=== PATIENT | female | born 1970 | race Caucasian/White ===

== ENCOUNTER 2016-05-09 08:06 | Day surgery (SDC) | payer OTHER ==
[~2016-05-09 08:06] MED LIST: Lidocaine 2% 5 ML SDV ONE; Midazolam 1 MG/ML 2 ML SDV ONE; Ondansetron 4 MG/2 ML SDV ONE; Propofol 200 MG/20 ML SDV ONE; fentaNYL 250 MCG/5 ML SDV ONE
[2016-05-09] MEDS ORDERED: Lactated Ringers 1,000 ML IV SCH (08:15)
[2016-05-09] MEDS ORDERED: Bupivacaine 0.25% 10 ML SDV ONE (08:15)
--- NOTE | 2016-05-09 09:09 | PCM.PREANE ---
Preanesthetic Assessment - Anesthesia/Transfusion/Family Hx Anesthesia History: Prior Anesthesia Without Reaction Family History of Anesthesia Reaction: No Transfusion History: No Prior Transfusion(s) - Review of Systems General: No Symptoms Pulmonary: No Symptoms Cardiovascular: No Symptoms Gastrointestinal: No symptoms Neurological: No Symptoms Other: Reports: None - Physical Assessment NPO Status Date: 05/08/16 NPO Status Time: 22:00 O2 Sat by Pulse Oximetry: 100 Respiratory Rate: 18 Vital Signs: Last Vital Signs Temp 36.4 C 05/09/16 08:27 Pulse 84 05/09/16 08:27 Resp 18 05/09/16 08:27 BP 141/85 H 05/09/16 08:27 Pulse Ox 100 05/09/16 08:27 Height: 1.78 m Weight: 130.181 kg ASA Class: 2 Mental Status: Alert & Oriented x3 Airway Class: Mallampati = 2 Dentition: Reports: Dentures ROM/Head Extension: Full Lungs: Clear to auscultation, Normal respiratory effort Cardiovascular: Regular Rate, Regular Rhythm - Lab Values: Laboratory Last Values WBC 8.00 K/uL (4.0-11.0) 05/09/16 08:50 RBC 4.58 M/uL (4.30-5.90) 05/09/16 08:50 Hgb 11.4 g/dL (12.0-16.0) L 05/09/16 08:50 Hct 36.4 % (36.0-46.0) 05/09/16 08:50 MCV 79.5 fL (80.0-98.0) L 05/09/16 08:50 MCH 24.9 pg (27.0-32.0) L 05/09/16 08:50 MCHC 31.3 g/dL (31.0-37.0) 05/09/16 08:50 RDW Std Deviation 43.8 fl (28.0-62.0) 05/09/16 08:50 RDW Coeff of Ginny 15 % (11.0-15.0) 05/09/16 08:50 Plt Count 310 K/uL (150-400) 05/09/16 08:50 MPV 9.40 fL (7.40-12.00) 05/09/16 08:50 Nucleated RBC % 0.0 /100WBC 05/09/16 08:50 Nucleated RBCs # 0 K/uL 05/09/16 08:50 - Allergies Allergies/Adverse Reactions: Allergies Allergy/AdvReac Type Severity Reaction Status Date / Time aspirin Allergy Other Verified 12/15/14 13:20 - Anesthesia Plan Pre-Op Medication Ordered: None - Acknowledgements Anesthesia Type Planned: General Anesthesia Pt an Appropriate Candidate for the Planned Anesthesia: Yes Alternatives and Risks of Anesthesia Discussed w Pt/Guardian: Yes Pt/Guardian Understands and Agrees with Anesthesia Plan: Yes Additional Comments: No history of or sx of reflux, Had new lower dentures fitted 3 weeks ago. Lower gums and floor of mouth are still very sore. Priscilla Mcnair was found after testing because of a strong family history. Pt has never had a bleeding complication from her priscilla schroeder. 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 Other OB/BYN History: hx ETOP Musculoskeletal History: Reports: Arthritis Psychiatric History: Reports: Anxiety, Depression Endocrine/Metabolic History: Reports: Obesity/BMI 30+ Hematologic History: Reports: Anemia, Bleeding disorder Other Hematologic History: hx Von Willebrand's - Past Surgical History Head Surgeries/Procedures: Reports: None GI Surgical History: Reports: Cholecystectomy Musculoskeletal Surgical History: Reports: Other (see below) Other Musculoskeletal Surgeries/Procedures:: hx tabitha knee surgery - SUBSTANCE USE Smoking Status *Q: Light Tobacco Smoker Tobacco Use Within Last Twelve Months: Cigarettes Days Per Week of Alcohol Use: 1 Number of Drinks Per Day: 1 Total Drinks Per Week: 1 Recreational Drug Use History: No - HOME MEDS Home Medications: Home Meds Acetaminophen [Tylenol Extra Strength] 2 tab PO ASDIRECTED PRN 05/04/16 [History ] LORazepam 0.5 mg PO ASDIRECTED PRN 05/04/16 [History] - CURRENT (IN HOUSE) MEDS Current Meds: Current Medications Lactated Ringer's (Ringers, Lactated) 1,000 mls @ 125 mls/hr IV ASDIRECTED JAIRO Last Admin: 05/09/16 08:29 Dose: 125 mls/hr Discontinued Medications Bupivacaine HCl (Sensorcaine-Mpf 0.25%) Confirm Administered Dose 20 ml .ROUTE .STK-MED ONE Stop: 05/09/16 08:16 Fentanyl (Sublimaze) Confirm Administered Dose 250 mcg .ROUTE .STK-MED ONE Stop: 05/09/16 07:08 Lidocaine (Xylocaine-Mpf 2%) Confirm Administered Dose 5 ml .ROUTE .STK-MED ONE Stop: 05/09/16 07:07 Midazolam HCl (Versed 1 Mg/Ml) Confirm Administered Dose 2 mg .ROUTE .STK-MED ONE Stop: 05/09/16 07:08 Ondansetron HCl (Zofran) Confirm Administered Dose 4 mg .ROUTE .STK-MED ONE Stop: 05/09/16 07:07 Propofol (Diprivan 20 Ml) Confirm Administered Dose 200 mg .ROUTE .STK-MED ONE Stop: 05/09/16 07:07 Preanesthetic Assessment - ANESTHESIA/TRANSFUSION/FAMILY HX Anesthesia/Transfusion History: No Prior Transfusion(s), Prior Anesthesia Family History of Anesthesia Reaction: No Other Intubation History Comment: no known problems - PHYSICAL ASSESSMENT O2 Sat by Pulse Oximetry: 100 RR: 18 Vital Signs: Last Vital Signs Temp 36.4 C 05/09/16 08:27 Pulse 84 05/09/16 08:27 Resp 18 05/09/16 08:27 BP 141/85 H 05/09/16 08:27 Pulse Ox 100 05/09/16 08:27 Height: 1.78 m Weight: 130.181 kg NPO Status Date: 05/08/16 NPO Status Time: 22:00 - LAB Values: Laboratory Last Values WBC 8.00 K/uL (4.0-11.0) 05/09/16 08:50 RBC 4.58 M/uL (4.30-5.90) 05/09/16 08:50 Hgb 11.4 g/dL (12.0-16.0) L 05/09/16 08:50 Hct 36.4 % (36.0-46.0) 05/09/16 08:50 MCV 79.5 fL (80.0-98.0) L 05/09/16 08:50 MCH 24.9 pg (27.0-32.0) L 05/09/16 08:50 MCHC 31.3 g/dL (31.0-37.0) 05/09/16 08:50 RDW Std Deviation 43.8 fl (28.0-62.0) 05/09/16 08:50 RDW Coeff of Ginny 15 % (11.0-15.0) 05/09/16 08:50 Plt Count 310 K/uL (150-400) 05/09/16 08:50 MPV 9.40 fL (7.40-12.00) 05/09/16 08:50 Nucleated RBC % 0.0 /100WBC 05/09/16 08:50 Nucleated RBCs # 0 K/uL 05/09/16 08:50 - ALLERGIES Allergies/Adverse Reactions: Allergies Allergy/AdvReac Type Severity Reaction Status Date / Time aspirin Allergy Other Verified 12/15/14 13:20
[2016-05-09] MEDS: fentaNYL 100 MCG/2 ML SDV IVPUSH PRN ×2 (12:28→12:39)
--- NOTE | 2016-05-09 12:38 | PCM.OPNOTE ---
- General Post-Op/Procedure Note Date of Surgery/Procedure: 05/09/16 Operative Procedure(s): 1) Operative hysteroscopy with removal of an embedded IUD. 2) Dilation and Curettage Findings: Anterverted uterus 8 weeks size, sounded to 7cm. No intracavitary lesions: fibroids or polyps. Both os visualized. IUD stem and string visualized, the arms were not visualized, they embedded into the anterior uterine wall towards the left side. No injuries visualized post procedure. Pre Op Diagnosis: Embedded IUD Post-Op Diagnosis: Same Anesthesia Technique: General LMA Primary Surgeon: Anyi Joyce Pathology: IUD, Endometrial curetting and Endocervical curetting Fluid Replacement, Intraop: 1,000 EBL in mLs: 5 Complications: None Condition: Good
--- NOTE | 2016-05-09 12:51 | PCM48HPAN ---
Post Anesthesia Note - EVALUATION WITHIN 48HRS OF ANESTHETIC Vital Signs in Normal Range: Yes Patient Participated in Evaluation: Yes Respiratory Function Stable: Yes Airway Patent: Yes Cardiovascular Function Stable: Yes Hydration Status Stable: Yes Pain Control Satisfactory: Yes Nausea and Vomiting Control Satisfactory: Yes Mental Status Recovered: Yes
--- NOTE | 2016-05-09 12:51 | PCM.POSTAN ---
POST ANESTHESIA ASSESSMENT - MENTAL STATUS Mental Status: alert, oriented - RESPIRATORY Respiratory Status: respiratory rate WNL, airway patent - CARDIOVASCULAR CV Status: pulse rate WNL, blood pressure stable - GASTROINTESTINAL GI Status: no symptoms - POST OP HYDRATION Hydration Status: adequate & stable
[2016-05-09] MEDS ORDERED: Acetaminophen 325 MG Tab PO ONE (13:18)
[2016-05-09 13:22] VITALS: BP 116/72
--- NOTE | 2016-05-10 03:37 | OR ---
SURGEON: Anyi Joyce MD DATE OF PROCEDURE: 05/09/2016 PREOPERATIVE DIAGNOSIS: Embedded intrauterine device. POSTOPERATIVE DIAGNOSIS: Embedded intrauterine device. OPERATIVE PROCEDURE: 1. Operative hysteroscopy with removal of embedded IUD. 2. Dilatation and curettage. ANESTHESIA: General LMA. ESTIMATED BLOOD LOSS: Less than 15 mL. IV FLUIDS: 1000 mL of crystalloid. COMPLICATIONS: None. DISPOSITION: Stable to recovery room. PATHOLOGY: 1. IUD. 2. Endometrial and endocervical curetting. FINDINGS: Anteverted uterus, 8-week size, sounded to 7 cm. No adnexal mass is palpable. No intracavitary lesions seen on hysteroscopy. Both fallopian tubes ostia were visualized. IUD stem and string visualized within the uterine cavity, the arms of the IUD were not visualized, they were found to be embedded into the anterior uterine wall towards the left side. BRIEF HISTORY: The patient is a 46-year-old lady who was evaluated in the office following a referral for the possible embedded IUD by her PCP. The patient reports that she has had the IUD for over 15 years, she is unsure of the type. It was placed mainly for contraception. During the course of her encounter with the primary physician, they were unable to remove the IUD and an x-ray was performed which reported that the IUD seemed to have perforated the anterior uterine wall. When I evaluated her in the office, string of the IUD was visualized at the cervical os, but with a slight tug on the string, the IUD would not bulge. Pelvic ultrasound was showed that the arms of the IUD deeply embedded into the anterior uterine wall with possible perforation of the wall. We were able to visualize the bladder which was normal. There were no other pelvic abnormalities noted. The patient was then consented for hysteroscopic removal with possible laparoscopy and other indicated procedures depending on intraoperative findings. Risks and benefits of both surgeries were reviewed extensively with the patient and appropriate consent was obtained. DESCRIPTION OF PROCEDURE: The patient was taken to the operating room, where induction of general anesthesia was performed and found to be adequate. After appropriate level of anesthesia, she was placed in dorsal lithotomy position, prepped and draped in normal sterile fashion for both vaginal and laparoscopic surgery. The bladder was emptied. Examination under anesthesia revealed an anteverted uterus with no adnexal masses palpable. Endocervical curetting was performed and the sample retrieved with a Cytobrush. The cervical os was then serially dilated up to Hegar #6 and then using a MyoSure 6.5 mm operative hysteroscope, was introduced into the uterine cavity under direct visualization using normal saline as distention media. Upon entering uterine cavity, the stem of the IUD with the attached string was visualized and both fallopian tubes ostia were also identified. Tracing the stem of the IUD upwards , I was unable to visualize the arms. These were noted to be embedded into the anterior uterine wall towards the left side. A hysteroscopic grasper was then advanced into the cavity and grabbing onto the string, I pulled on it, the string dislodged and I removed that from the cavity. I reinserted the grasper and grabbed the IUD stem closer the region where it was embedded. Pulling on it, the IUD seemed to move a little bit, but despite multiple attempts with the hysteroscopic grasper, I was unable to retrieve/dislodge the IUD from the point where it was embedded in to the uterine wall. Thereafter, I tried a couple other techniques and instruments. I tried with an Endo grasper, grabbing the IUD stem and pulling a couple of times and this too was not successful. I then tried an Endo snare. The snare was passed into the cavity and the snare was then passed around end of the stem, tightened, with gentle tugging and pulling backwards, the IUD dislodged completely with both arms intact. I removed the hysteroscope and took out the IUD confirming that it was intact. It looked like a copper IUD, a picture was taken and it was sent off to pathology for analysis. The hysteroscope was reinserted into the uterine cavity. The uterine cavity was examined and no injury/perforation was noted. The area at which the IUD had been embedded was noted to have a small tiny defect on the endometrium, but other than that, no other injury was found with no bleeding from the site. The hysteroscope was withdrawn and I performed a gentle curettage retrieving minimal amount of tissue. I reinserted the hysteroscope for one last look and confirming that there were no injuries, the procedure was terminated. The fluid deficit for the surgery was about a 1630 as recorded by MyoSure fluid management device. The Allis clamp was removed from the anterior cervical lip. The area was found to be hemostatic. The patient tolerated the procedure well. Sponge, instrument, and needle counts were correct at the end of the procedure. The patient was taken to the recovery room in stable condition. JOSESITO ALCANTARA /[id number] MTDD
== END 2016-05-09 13:30 | disposition home or self-care (01) ==
LOC: MW.SDS 08:06
PROVIDERS: ATTEND Obstetrics & Gynecology
DX: N71.1 Chronic inflammatory disease of uterus (principal); T83.39XA Other mechanical complication of intrauterine contraceptive device, initial encounter; Z88.8 Allergy status to other drugs, medicaments and biological substances; Z79.899 Other long term (current) drug therapy; Z90.49 Acquired absence of other specified parts of digestive tract; F17.210 Nicotine dependence, cigarettes, uncomplicated
CPT/HCPCS: 36415; 58562; 84703; 85027; 88300; 88305; J2250; J2405; J3010; J7120; 00952; J2704

== ENCOUNTER → 2016-06-22 | Outpatient (CLI) | payer OTHER ==
--- NOTE | 2016-06-22 15:43 | CR ---
EXAMINATION: Bilateral knees HISTORY: Pain COMPARISON: None TECHNIQUE: 4 views bilaterally FINDINGS: There is severe joint space narrowing within the lateral compartment of the right knee and moderately within the medial compartment of the left knee. Advanced joint space narrowing is noted along the lateral facet of the patellofemoral compartment of the left knee. Prominent osteophytes ar e noted. Bilateral ACL repair changes present. No fracture or acute osseous abnormality. No soft tis cindy swelling or joint effusion. IMPRESSION: Advanced osteoarthritic changes of the knees bilaterally.
== END ==
LOC: MW.CHORTHO 07:59
PROVIDERS: ATTEND Physician Assistant
DX: M25.561 Pain in right knee (principal); M25.562 Pain in left knee
CPT/HCPCS: 735642650; 73564-50

== ENCOUNTER 2016-09-18 18:09 | Emergency (ER) | payer OTHER ==
[2016-09-18] MEDS ORDERED: Sodium Chloride 0.9% 1,000 ML IV ONE (18:59)
[2016-09-18] MEDS ORDERED: Ketorolac 30 MG/ML SDV IVPUSH ONE (18:59)
[2016-09-18] MEDS ORDERED: fentaNYL 100 MCG/2 ML SDV IVPUSH ONE (19:06)
--- NOTE | 2016-09-18 19:06 | EDM.PDOC ---
ED HPI GENERAL MEDICAL PROBLEM - General Chief Complaint: Lower Extremity Injury/Pain Stated Complaint: PT HURT RT KNEE Time Seen by Provider: 09/18/16 19:03 Source of Information: Reports: Patient History Limitations: Reports: No Limitations - History of Present Illness INITIAL COMMENTS - FREE TEXT/NARRATIVE: History of present illness: [46-year-old female comes in complaining of bilateral knee pain right greater than left. States that she has had bilateral knee replacement recently. Indicates she's been able to tolerate the pain well but unfortunately in the last 24 hours she's gotten to where she cannot tolerate weightbearing due to pain on the right leg.] Review of systems: As per history of present illness and below otherwise all systems reviewed and negative. Past medical history: As per history of present illness and as reviewed below otherwise noncontributory. Surgical history: As per history of present illness and as reviewed below otherwise noncontributory. Social history: No reported history of drug or alcohol abuse. Family history: As per history of present illness and as reviewed below otherwise noncontributory. Physical exam: HEENT: Atraumatic, normocephalic, pupils reactive, negative for conjunctival pallor or scleral icterus, mucous membranes moist, throat clear, neck supple, nontender, trachea midline. Lungs: Clear to auscultation, breath sounds equal bilaterally, chest nontender. Heart: S1S2, regular, negative for clicks, rubs, or JVD. Abdomen: Soft, nondistended, nontender. Negative for masses or hepatosplenomegaly. Negative for costovertebral tenderness. Pelvis: Stable nontender. Genitourinary: Deferred. Rectal: Deferred. Extremities: Bilateral knees with edema and erythema at incision line consistent with new bilateral knee replacement, negative for cords or calf pain. Neurovascular unremarkable. Neuro: Awake, alert, oriented. Cranial nerves II through XII unremarkable. Cerebellum unremarkable. Motor and sensory unremarkable throughout. Exam nonfocal. Global assessment is benign save the subjective complaint as noted in history of present illness of pain in the bilateral knees right worse than left and patient's fear of a DVT Diagnostics: CBC, CMP, d-dimer, ultrasound/venous Doppler Therapeutics: [IV fluid, Toradol, Zofran, ] Impression: [Knee pain] Plan: [Follow-up with surgeon/primary care provider Definitive disposition and diagnosis as appropriate pending reevaluation and review of above. Right Knee Pain Score (Numeric/FACES): 10 Bilateral Knee Pain Score (Numeric/FACES): 3 - Related Data Allergies Allergy/AdvReac Type Severity Reaction Status Date / Time No Known Allergies Allergy Verified 09/18/16 19:11 Home Meds: Home Meds Acetaminophen/HYDROcodone [[place] 325-10 MG] 10 - 325 mg PO Q2HR 09/18/16 [ History] Aspirin 325 mg PO BID 09/18/16 [History] Celecoxib [CeleBREX] 0 mg PO BID 09/18/16 [History] Polyethylene Glycol 3350 [MiraLAX] 17 gm PO BEDTIME 09/18/16 [History] oxyCODONE 5 mg PO Q2H 09/18/16 [History] Past Medical History - Past Health History Medical/Surgical History: Denies Medical/Surgical History HEENT History: Reports: Other (See Below) Other HEENT History: top and bottom denture, wears glasses Other Cardiovascular History: Von Willebrand disease, never formally diagnosed Gastrointestinal History: Reports: None Other Gastrointestinal History: fissures Genitourinary History: Reports: None 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: , 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 Other OB/BYN History: hx ETOP Musculoskeletal History: Reports: Arthritis Psychiatric History: Reports: Anxiety, Depression Endocrine/Metabolic History: Reports: Obesity/BMI 30+ Hematologic History: Reports: Anemia, Bleeding Disorder Other Hematologic History: hx Von Willebrand's - Infectious Disease History Infectious Disease History: Reports: Chicken Pox - Past Surgical History Head Surgeries/Procedures: Reports: None GI Surgical History: Reports: Cholecystectomy Musculoskeletal Surgical History: Reports: Knee Replacement Other Musculoskeletal Surgeries/Procedures:: double knee replacement Social & Family History - Family History Family Medical History: Noncontributory - Tobacco Use Smoking Status *Q: Current Every Day Smoker Years of Tobacco use: 10 Packs/Tins Daily: 0.5 Month Tobacco Last Used: smokes 5 to 6 cigarettes per day - Caffeine Use Caffeine Use: Reports: None - Alcohol Use Days Per Week of Alcohol Use: 1 Number of Drinks Per Day: 1 Total Drinks Per Week: 1 - Recreational Drug Use Recreational Drug Use: No Drug Use in Last 12 Months: No Review of Systems - Review of Systems Review Of Systems: See Below (The history of present illness) ED EXAM, GENERAL - Physical Exam Exam: See Below (History of present illness) Course - Vital Signs Last Recorded V/S: Last Vital Signs Temp 37.1 C 09/18/16 20:27 Pulse 93 09/18/16 20:27 Resp 18 09/18/16 20:27 BP 112/65 09/18/16 20:27 Pulse Ox 99 09/18/16 20:27 - Orders/Labs/Meds Orders: Active Orders 24 hr Category Date Time Status Venous Doppler Lwr Ext Lt [US] Stat Exams 09/18/16 20:05 Ordered Venous Doppler Lwr Ext Rt [US] Stat Exams 09/18/16 20:05 Ordered Labs: Laboratory Tests 09/18/16 09/18/16 09/18/16 Range/Units 19:20 19:20 19:20 WBC 12.60 H (4.0-11.0) K/uL RBC 3.37 L (4.30-5.90) M/uL Hgb 8.5 L (12.0-16.0) g/dL Hct 27.2 L (36.0-46.0) % MCV 80.7 (80.0-98.0) fL MCH 25.2 L (27.0-32.0) pg MCHC 31.3 (31.0-37.0) g/dL RDW Std Deviation 50.0 (28.0-62.0) fl RDW Coeff of Ginny 17 H (11.0-15.0) % Plt Count 450 H (150-400) K/uL MPV 8.90 (7.40-12.00) fL Add Manual Diff YES Neutrophils % (Manual) 70 (48.0-80.0) % Band Neutrophils % 6 % Lymphocytes % (Manual) 18 (16.0-40.0) % Monocytes % (Manual) 2 (0.0-15.0) % Eosinophils % (Manual) 2 (0.0-7.0) % Basophils % (Manual) 2 H (0.0-1.5) % Nucleated RBC % 0.0 /100WBC Absolute Seg Neuts 8.8 Band Neutrophils # 0.8 Lymphocytes # (Manual) 2.3 Monocytes # (Manual) 0.3 Eosinophils # (Manual) 0.3 Basophils # (Manual) 0 Nucleated RBCs # 0 K/uL D-Dimer, Quantitative 5.91 H (0.0-0.52) mg/LFEU Sodium 138 (136-146) mmol/L Potassium 4.2 (3.5-5.1) mmol/L Chloride 103 (98-110) mmol/L Carbon Dioxide 25 (21-31) mmol/L BUN 10 (6.0-23.0) mg/dL Creatinine 0.7 (0.6-1.5) mg/dL Est Cr Clr Drug Dosing 108.59 mL/min Estimated GFR (MDRD) > 60.0 ml/min Glucose 108 (60-110) mg/dL Calcium 9.0 (8.8-10.8) mg/dL Total Bilirubin 0.5 (0.1-1.5) mg/dL AST 12 (5-40) IU/L ALT 12 (8-54) IU/L Alkaline Phosphatase 109 (40-150) Total Protein 6.8 (6.0-8.0) g/dL Albumin 3.4 L (3.5-5.0) g/dL Globulin 3.4 (2.0-3.5) g/dL Albumin/Globulin Ratio 1.0 L (1.3-2.8) Amylase 33 (10-90) U/L Lipase 9 (7-80) U/L Meds: Medications Discontinued Medications Generic Name Dose Route Start Last Admin Trade Name Freq PRN Reason Stop Dose Admin Fentanyl 50 mcg 09/18/16 19:06 09/18/16 19:34 Sublimaze IVPUSH 09/18/16 19:07 50 mcg ONETIME ONE Administration Sodium Chloride 1,000 mls @ 999 mls/hr 09/18/16 18:59 09/18/16 19:31 Normal Saline IV 09/18/16 19:59 999 mls/hr STAT ONE Administration Ketorolac Tromethamine 30 mg 09/18/16 18:59 09/18/16 19:31 Toradol IVPUSH 09/18/16 19:00 30 mg ONETIME ONE Administration Departure - Departure Time of Disposition: 21:25 Disposition: Home, Self-Care 01 Condition: Good Clinical Impression: Knee pain - Discharge Information Forms: ED Department Discharge Additional Instructions: The following information is given to patients seen in the emergency department who are being discharged to home. This information is to outline your options for follow-up care. We provide all patients seen in our emergency department with a follow-up referral. The need for follow-up, as well as the timing and circumstances, are variable depending upon the specifics of your emergency department visit. If you don't have a primary care physician on staff, we will provide you with a referral. We always advise you to contact your personal physician following an emergency department visit to inform them of the circumstance of the visit and for follow-up with them and/or the need for any referrals to a consulting specialist. The emergency department will also refer you to a specialist when appropriate. This referral assures that you have the opportunity for follow-up care with a specialist. All of these measure are taken in an effort to provide you with optimal care, which includes your follow-up. Under all circumstances we always encourage you to contact your private physician who remains a resource for coordinating your care. When calling for follow-up care, please make the office aware that this follow-up is from your recent emergency room visit. If for any reason you are refused follow-up, please contact the [facility] Emergency Department at and asked to speak to the emergency department charge nurse. Follow-up with your surgeon as discussed Return to PCP in 1-2 days Use elevation and ice and gentle stretching with your legs as directed in her physical therapy Return to ED as needed as discussed - My Orders Last 24 Hours: My Active Orders 09/18/16 20:05 Venous Doppler Lwr Ext Lt [US] Stat Venous Doppler Lwr Ext Rt [US] Stat - Assessment/Plan Last 24 Hours: My Active Orders 09/18/16 20:05 Venous Doppler Lwr Ext Lt [US] Stat Venous Doppler Lwr Ext Rt [US] Stat
[2016-09-18 19:47] LABS: CHLORIDE,CL 103 mmol/L (98-110); SODIUM,NA 138 mmol/L (136-146)
[2016-09-18 21:43] VITALS: BP 130/75
--- NOTE | 2016-09-19 08:43 | US ---
EXAM DATE: 09/18/16 PATIENT'S AGE: 46 Patient: JOSIANE MARY Facility: [place], [place] Site . Site : 1970 Study: US Extremity Right [id number]/7/2017 9:11:04 PM Ordering Physician: Doctor Dodge Final Report: INDICATION: leg pain post surgery 09/07/2016 tabitha knee replacem TECHNIQUE: Ultrasound venous duplex lower right extremity. Compression venous exam was performed using headley-scale, color Doppler, and spectral Doppler imaging. COMPARISON: None FINDINGS: Sonographic imaging demonstrates the right common femoral, deep femoral, superficial femoral, popliteal, posterior tibial and greater saphenous and the contralateral left common femoral veins to be fully compressible with normal color Doppler blood flow. Nonspecific subcutaneous edema. IMPRESSION: No evidence of deep venous thrombosis within the right lower extremity. Dictated by Jarred Rodriguez MD @ 09/18/2016 9:17:11 PM Dictated by: Jarred Rodriguez MD @ 09/18/2016 21:17:32 (Electronic Signature) Report Signed by Proxy. [facility]ENTER[facility]igi
--- NOTE | 2016-09-19 08:43 | US ---
EXAM DATE: 09/18/16 PATIENT'S AGE: 46 Patient: JOSIANE MARY Facility: [place], [place] Site . Site : 1970 Study: US Extremity Left [id number]/7/2017 9:12:18 PM Ordering Physician: Doctor Dodge Final Report: INDICATION: leg pain post tabitha knee replacemnt TECHNIQUE: Ultrasound venous duplex lower left extremity. Compression venous exam was performed using headley-scale, color Doppler, and spectral Doppler analysis. COMPARISON: None FINDINGS: Sonographic imaging demonstrates the left common femoral, deep femoral, superficial femoral, popliteal, posterior tibial and greater saphenous and the contralateral right common femoral veins to be fully compressible with normal color Doppler blood flow. IMPRESSION: No evidence of deep venous thrombosis within the left lower extremity. Dictated by Jarred Rodriguez MD @ 09/18/2016 9:18:19 PM Dictated by: Jarred Rodriguez MD @ 09/18/2016 21:22:20 (Electronic Signature) Report Signed by Proxy. [facility]
== END 2016-09-18 21:42 | disposition home or self-care (01) ==
LOC: MW.ED 18:09
DX: M25.561 Pain in right knee (principal); M25.562 Pain in left knee; F17.210 Nicotine dependence, cigarettes, uncomplicated; Z90.49 Acquired absence of other specified parts of digestive tract; Z79.82 Long term (current) use of aspirin; Z96.653 Presence of artificial knee joint, bilateral; E66.9 Obesity, unspecified; Z86.2 Personal history of diseases of the blood and blood-forming organs and certain disorders involving the immune mechanism
CPT/HCPCS: 36415; 80053; 82150; 83690; 85025; 85379; 93971; 96361; 96374; 96375; 99284; J1885; J3010; J7040

== ENCOUNTER 2017-06-18 22:30 | Emergency (ER) | payer OTHER ==
[2017-06-19 04:09] VITALS: BP 121/92
== END 2017-06-18 22:50 | disposition left against medical advice (07) ==
LOC: MW.ED 22:30
DX: Z53.21 Procedure and treatment not carried out due to patient leaving prior to being seen by health care provider (principal)
CPT/HCPCS: 99282

== ENCOUNTER 2019-09-18 18:15 | Emergency (ER) | payer OTHER ==
[2019-09-18] MEDS ORDERED: Ondansetron 4 MG/2 ML SDV IVPUSH ONE (20:13)
[2019-09-18] MEDS ORDERED: Morphine 4 MG/ML Syringe IVPUSH ONE ×2 (20:13→20:59)
[2019-09-18] MEDS ORDERED: Sodium Chloride 0.9% 1,000 ML IV ONE (20:13)
--- NOTE | 2019-09-18 20:18 | EDM.PDOC ---
ED HPI GENERAL MEDICAL PROBLEM - General Chief Complaint: Abdominal Pain Stated Complaint: RIGHT SIDE PAIN Time Seen by Provider: 09/18/19 18:59 Source of Information: Reports: Patient History Limitations: Reports: No Limitations - History of Present Illness INITIAL COMMENTS - FREE TEXT/NARRATIVE: 49F presents for RLQ abdominal pain since last night worsening associated with nausea w/o emesis and lack of appetite. No fevers, no dysuria/hematuria. H/o cholecystectomy. Still has uterus and appendix. Onset: Other (last night) Location: Reports: Abdomen Quality: Reports: Sharp right side Pain Score (Numeric/FACES): 10 - Related Data Allergies Allergy/AdvReac Type Severity Reaction Status Date / Time No Known Allergies Allergy Verified 09/18/19 20:01 Home Meds: Home Meds . 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 Other ELECTRICAL CAD TECHNICIAN History: hx ETOP Musculoskeletal History: Reports: Arthritis Psychiatric History: Reports: Anxiety, Depression Endocrine/Metabolic History: Reports: Obesity/BMI 30+ Hematologic History: Reports: Anemia, Bleeding Disorder Other Hematologic History: hx Von Willebrand's - Infectious Disease History Infectious Disease History: Reports: Chicken Pox - Past Surgical History Head Surgeries/Procedures: Reports: None GI Surgical History: Reports: Cholecystectomy Musculoskeletal Surgical History: Reports: Knee Replacement Other Musculoskeletal Surgeries/Procedures:: double knee replacement Social & Family History - Family History Family Medical History: Noncontributory - Caffeine Use Caffeine Use: Reports: None - Recreational Drug Use Recreational Drug Type: Reports: Marijuana/Hashish ED ROS GENERAL - Review of Systems Review Of Systems: Comprehensive ROS is negative, except as noted in HPI. ED EXAM, GI/ABD - Physical Exam Exam: See Below Exam Limited By: No Limitations General Appearance: Alert, WD/WN, No Apparent Distress Head: Atraumatic Respiratory/Chest: No Respiratory Distress, Lungs Clear, Normal Breath Sounds, No Accessory Muscle Use Cardiovascular: Normal Peripheral Pulses, Regular Rate, Rhythm GI/Abdominal Exam: Soft, No Distention, Tender (RLQ w/o guarding or rebound) Back Exam: No: CVA Tenderness (L), CVA Tenderness (R) Extremities: Normal Inspection Neurological: Alert, Oriented Skin Exam: Warm, Dry Course - Vital Signs Last Recorded V/S: Last Vital Signs Temp 96.3 F L 09/18/19 22:28 Pulse 94 09/18/19 22:28 Resp 17 09/18/19 22:28 BP 148/71 H 09/18/19 22:28 Pulse Ox 95 09/18/19 22:28 - Orders/Labs/Meds Orders: Active Orders 24 hr Category Date Time Status Transvaginal Non OB [US] Stat Exams 09/18/19 21:51 Taken Labs: Laboratory Tests 09/18/19 09/18/19 09/18/19 Range/Units 18:45 18:45 20:10 WBC 15.21 H (4.0-11.0) K/uL RBC 5.51 (4.30-5.90) M/uL Hgb 14.2 (12.0-16.0) g/dL Hct 44.4 (36.0-46.0) % MCV 80.6 (80.0-98.0) fL MCH 25.8 L (27.0-32.0) pg MCHC 32.0 (31.0-37.0) g/dL RDW Std Deviation 46.1 (28.0-62.0) fl RDW Coeff of Ginny 16 H (11.0-15.0) % Plt Count 392 (150-400) K/uL MPV 9.50 (7.40-12.00) fL Neut % (Auto) 64.0 (48.0-80.0) % Lymph % (Auto) 28.3 (16.0-40.0) % Vermilion % (Auto) 5.8 (0.0-15.0) % Eos % (Auto) 1.6 (0.0-7.0) % Baso % (Auto) 0.3 (0.0-1.5) % Neut # (Auto) 9.7 H (1.4-5.7) K/uL Lymph # (Auto) 4.3 H (0.6-2.4) K/uL Vermilion # (Auto) 0.9 H (0.0-0.8) K/uL Eos # (Auto) 0.3 (0.0-0.7) K/uL Baso # (Auto) 0.1 (0.0-0.1) K/uL Nucleated RBC % 0.0 /100WBC Nucleated RBCs # 0 K/uL Sodium (136-145) mmol/L Potassium (3.5-5.1) mmol/L Chloride (98-107) mmol/L Carbon Dioxide (21.0-32.0) mmol/L BUN (7.0-18.0) mg/dL Creatinine (0.6-1.0) mg/dL Est Cr Clr Drug Dosing mL/min Estimated GFR (MDRD) ml/min Glucose (74-106) mg/dL Calcium (8.5-10.1) mg/dL Total Bilirubin (0.2-1.0) mg/dL AST (15-37) IU/L ALT (14-63) IU/L Alkaline Phosphatase (46-116) U/L Total Protein (6.4-8.2) g/dL Albumin (3.4-5.0) g/dL Globulin (2.6-4.0) g/dL Albumin/Globulin Ratio (0.9-1.6) Lipase (73-393) U/L Urine Color YELLOW Urine Appearance CLEAR Urine pH 7.0 (5.0-8.0) Ur Specific Quincy 1.020 (1.001-1.035) Urine Protein NEGATIVE (NEGATIVE) mg/dL Urine Glucose (UA) NEGATIVE (NEGATIVE) mg/dL Urine Ketones NEGATIVE (NEGATIVE) mg/dL Urine Occult Blood NEGATIVE (NEGATIVE) Urine Nitrite NEGATIVE (NEGATIVE) Urine Bilirubin NEGATIVE (NEGATIVE) Urine Urobilinogen 0.2 (<2.0) EU/dL Ur Leukocyte Esterase NEGATIVE (NEGATIVE) Urine HCG, Qual NEGATIVE (NEGATIVE) 09/18/19 Range/Units 20:10 WBC (4.0-11.0) K/uL RBC (4.30-5.90) M/uL Hgb (12.0-16.0) g/dL Hct (36.0-46.0) % MCV (80.0-98.0) fL MCH (27.0-32.0) pg MCHC (31.0-37.0) g/dL RDW Std Deviation (28.0-62.0) fl RDW Coeff of Ginny (11.0-15.0) % Plt Count (150-400) K/uL MPV (7.40-12.00) fL Neut % (Auto) (48.0-80.0) % Lymph % (Auto) (16.0-40.0) % Vermilion % (Auto) (0.0-15.0) % Eos % (Auto) (0.0-7.0) % Baso % (Auto) (0.0-1.5) % Neut # (Auto) (1.4-5.7) K/uL Lymph # (Auto) (0.6-2.4) K/uL Vermilion # (Auto) (0.0-0.8) K/uL Eos # (Auto) (0.0-0.7) K/uL Baso # (Auto) (0.0-0.1) K/uL Nucleated RBC % /100WBC Nucleated RBCs # K/uL Sodium 133 L (136-145) mmol/L Potassium 4.1 (3.5-5.1) mmol/L Chloride 100 (98-107) mmol/L Carbon Dioxide 24.7 (21.0-32.0) mmol/L BUN 8 (7.0-18.0) mg/dL Creatinine 0.6 (0.6-1.0) mg/dL Est Cr Clr Drug Dosing 130.89 mL/min Estimated GFR (MDRD) > 60.0 ml/min Glucose 116 H (74-106) mg/dL Calcium 8.9 (8.5-10.1) mg/dL Total Bilirubin 0.2 (0.2-1.0) mg/dL AST 26 (15-37) IU/L ALT 48 (14-63) IU/L Alkaline Phosphatase 139 H (46-116) U/L Total Protein 7.7 (6.4-8.2) g/dL Albumin 3.6 (3.4-5.0) g/dL Globulin 4.1 H (2.6-4.0) g/dL Albumin/Globulin Ratio 0.9 (0.9-1.6) Lipase 73 (73-393) U/L Urine Color Urine Appearance Urine pH (5.0-8.0) Ur Specific Quincy (1.001-1.035) Urine Protein (NEGATIVE) mg/dL Urine Glucose (UA) (NEGATIVE) mg/dL Urine Ketones (NEGATIVE) mg/dL Urine Occult Blood (NEGATIVE) Urine Nitrite (NEGATIVE) Urine Bilirubin (NEGATIVE) Urine Urobilinogen (<2.0) EU/dL Ur Leukocyte Esterase (NEGATIVE) Urine HCG, Qual (NEGATIVE) Meds: Medications Discontinued Medications Generic Name Dose Route Start Last Admin Trade Name Frepedrito PRN Reason Stop Dose Admin Sodium Chloride 1,000 mls @ 999 mls/hr 09/18/19 20:13 09/18/19 20:28 Normal Saline IV 09/18/19 21:13 999 mls/hr .Bolus ONE Administration Iopamidol 100 ml 09/18/19 21:47 09/18/19 21:51 Isovue-370 (76%) IVPUSH 09/18/19 21:48 100 ml ONETIME STA Administration Morphine Sulfate 4 mg 09/18/19 20:13 09/18/19 20:28 Morphine IVPUSH 09/18/19 20:14 4 mg ONETIME ONE Administration Morphine Sulfate 4 mg 09/18/19 20:59 09/18/19 22:22 Morphine IVPUSH 09/18/19 21:00 4 mg ONETIME ONE Administration Ondansetron HCl 4 mg 09/18/19 20:13 09/18/19 20:28 Zofran IVPUSH 09/18/19 20:14 4 mg ONETIME ONE Administration - Re-Assessments/Exams Free Text/Narrative Re-Assessment/Exam: 09/18/19 20:18 Will get labs, UA, treat symptomatically. Will get CT to r/o appy vs other intraabdominal pathology. Free Text/Narrative Re-Assessment/Exam: 09/18/19 20:57 Pain improved but still present. Leukocytosis to 15. Will give additional morphine and f/u CT Departure - Departure Time of Disposition: 23:48 Disposition: Home, Self-Care 01 Condition: Good Clinical Impression: Ovarian cyst Qualifiers: Laterality: right Qualified Code(s): N83.201 - Unspecified ovarian cyst, right side - Discharge Information *PRESCRIPTION DRUG MONITORING PROGRAM REVIEWED*: No *COPY OF PRESCRIPTION DRUG MONITORING REPORT IN PATIENT MARIA C: No Instructions: Ovarian Cyst, [id number] Referrals: Carol Avendaño, [employer] [Primary Care Provider] - OB, OB [Other] (My [facility] [address] [place] [id number] My [facility] [address] [place] [id number] ) Forms: ED Department Discharge Additional Instructions: The following information is given to patients seen in the emergency department who are being discharged to home. This information is to outline your options for follow-up care. We provide all patients seen in our emergency department with a follow-up referral. The need for follow-up, as well as the timing and circumstances, are variable depending upon the specifics of your emergency department visit. If you don't have a primary care physician on staff, we will provide you with a referral. We always advise you to contact your personal physician following an emergency department visit to inform them of the circumstance of the visit and for follow-up with them and/or the need for any referrals to a consulting specialist. The emergency department will also refer you to a specialist when appropriate. This referral assures that you have the opportunity for follow-up care with a specialist. All of these measure are taken in an effort to provide you with optimal care, which includes your follow-up. Under all circumstances we always encourage you to contact your private physician who remains a resource for coordinating your care. When calling for follow-up care, please make the office aware that this follow-up is from your recent emergency room visit. If for any reason you are refused follow-up, please contact the [facility] Emergency Department at and asked to speak to the emergency department charge nurse. Sepsis Event Note (ED) - Evaluation Sepsis Screening Result: No Definite Risk - Focused Exam Vital Signs: Vital Signs Temp Pulse Resp BP Pulse Ox 09/18/19 22:28 96.3 F L 94 17 148/71 H 95 09/18/19 19:58 96.7 F L 89 20 157/88 H 97 - My Orders Last 24 Hours: My Active Orders 09/18/19 21:51 Transvaginal Non OB [US] Stat - Assessment/Plan Last 24 Hours: My Active Orders 09/18/19 21:51 Transvaginal Non OB [US] Stat
[2019-09-18 20:43] LABS: BLOOD UREA NITROGEN,BUN 8 mg/dL (7.0-18.0); CARBON DIOXIDE,CO2 24.7 mmol/L (21.0-32.0); CHLORIDE,CL 100 mmol/L (98-107); LIPASE 73 U/L (73-393); POTASSIUM,K 4.1 mmol/L (3.5-5.1); SODIUM,NA 133 mmol/L (136-145)
[2019-09-18 21:22] LABS: GLUCOSE RANDOM 116 mg/dL (74-106)
[2019-09-18] MEDS ORDERED: Iopamidol 755 Mg/ML 100 ML Bottle IVPUSH STA (21:47)
--- NOTE | 2019-09-18 21:50 | CT ---
CT abdomen and pelvis Technique: Multiple axial sections were obtained from above the dome of the diaphragm inferiorly through the pubic symphysis. Intravenous contrast was utilized. No oral contrast has been given. Comparison: Prior CT abdomen and pelvis exam of 03/05/12. Findings: Visualized lung bases showed nothing acute. Fatty infiltration is seen within the liver. No focal abnormality is appreciated. Spleen appears within normal limits. Adrenal glands show no nodule. Kidneys show symmetric contrast enhancement without hydronephrosis or mass. Small cyst is noted within the upper left kidney measuring 1.1 cm. Pancreas appears within normal limits. Surgical clips are seen from prior cholecystectomy. Aorta shows no aneurysm. No retroperitoneal adenopathy or mesenteric abnormalities are seen. Cystic lesion is noted within the right posterior pelvis compatible with a cyst measuring 5.6 cm. This is most likely ovarian in etiology. No additional pelvic abnormality is appreciated. Appendix is seen which appears normal in size. Bone window settings were reviewed which show slight degenerative change scattered throughout the spine. No acute osseous finding is appreciated. Impression: 1. 5.6 cm cyst within the posterior right pelvis most likely representing an ovarian cyst. 2. Small 1.1 cm cyst within the upper left kidney. 3. Fatty infiltration within the liver. 4. Nothing acute is appreciated. Diagnostic code #3 This report was dictated in MDT
[2019-09-19 00:12] VITALS: BP 147/90; PULSE 78
--- NOTE | 2019-09-19 00:34 | US ---
INDICATION: Abdominal pain. Evaluate for ovarian torsion. PELVIC ULTRASOUND Technique: Multiple transvaginal sonographic images of the pelvis were performed. Findings: The uterus is normal in size and contour, measuring 8.1 x 4.8 x 5.3 cm. The endometrium measures 7 mm in thickness and appears homogeneous. There are multiple uterine fibroids, the largest measuring 2.5 x 1.7 x 2.3 centimeters, 2.5 x 1.5 x 2.2 centimeters, and 2.4 x 1.5 x 2.7 centimeters. The right ovary contains a simple cyst which measures 5.5 x 3.8 x 5.3 centimeters. Additionally, both ovaries contain several follicles. Color and spectral Doppler blood flow is noted in both ovaries. No solid adnexal masses are evident. No significant free pelvic fluid is identified. IMPRESSION: 1. Multiple uterine fibroids, as noted above. 2. Right ovarian 5.5 x 3.8 x 5.3 centimeter simple cyst. Follow-up pelvic ultrasound in 12 months is recommended to evaluate stability. 3. No evidence of ovarian torsion. WALTER SCHUSTER MD [employer] Dictated by Matthias Schuster MD @ 09/19/2019 12:31:18 AM Dictated by: Matthias Schuster MD @ 09/19/2019 00:32:36 (Electronically Signed)
== END 2019-09-19 00:13 | disposition home or self-care (01) ==
LOC: MW.ED 18:15
DX: N83.201 Unspecified ovarian cyst, right side (principal); E66.9 Obesity, unspecified; Z68.41 Body mass index [BMI] 40.0-44.9, adult
CPT/HCPCS: 36415; 74177; 76830; 80053; 81003; 81025; 83690; 85025; 96374; 96375; 96376; 99284; J2270; J2405; J7030; Q9967

== ENCOUNTER 2019-11-25 20:32 | Emergency (ER) | payer OTHER ==
[2019-11-25] MEDS ORDERED: Sodium Chloride 0.9% 10 ML Syringe FLUSH PRN (21:24)
[2019-11-25] MEDS ORDERED: Ketorolac 15 MG/ML SDV IVPUSH ONE (21:24)
[2019-11-25] MEDS ORDERED: Sodium Chloride 0.9% 1,000 ML IV ONE (21:24)
[2019-11-25] MEDS ORDERED: Ondansetron 4 MG/2 ML SDV IVPUSH ONE (21:24)
[2019-11-25] MEDS ORDERED: Sodium Chloride 0.9% 2.5 ML Syringe FLUSH PRN (21:24)
[2019-11-25] MEDS ORDERED: HYDROmorphone 1 MG/ML Syringe IVPUSH ONE ×2 (21:24→23:06)
[2019-11-25 22:12] LABS: BLOOD UREA NITROGEN,BUN 9 mg/dL (7.0-18.0); CARBON DIOXIDE,CO2 25.5 mmol/L (21.0-32.0); CHLORIDE,CL 103 mmol/L (98-107); GLUCOSE RANDOM 146 mg/dL (74-106); LIPASE 62 U/L (73-393); POTASSIUM,K 3.9 mmol/L (3.5-5.1); SODIUM,NA 139 mmol/L (136-145)
--- NOTE | 2019-11-25 22:45 | CT ---
INDICATION: Right lower quadrant abdomen pain. History of ovarian cyst. TECHNIQUE: CT abdomen and pelvis without contrast. COMPARISON: September 18, 2019. FINDINGS: Lower chest: Unremarkable. Liver: Diffuse fatty infiltration. Otherwise unremarkable. Gallbladder and bile ducts: Status post cholecystectomy. No biliary dilatation. Pancreas: Unremarkable. No mass or inflammation. Spleen: Normal in size. No masses. Adrenal glands: Normal in size. No nodules. Kidneys: Normal in size. No masses, stones, or hydronephrosis. GI tract: Unremarkable. Normal in caliber. No sign of mass or inflammation. Normal appendix. Vasculature: Unremarkable. Lymph nodes: No lymphadenopathy. Abdominal wall/Omentum/Peritoneum: Unremarkable. No sign of mass or infiltration. No free air or significant free fluid. Pelvis: A 5 cm simple appearing cyst in the right ovary is unchanged. No sign of cystic rupture. No other Bones: Lesions. Uterus and urinary bladder are unremarkable. IMPRESSION: No acute findings and no significant changes from the prior exam. Stable simple appearing 5 cm right ovarian cyst without evidence of rupture. Appendix and GI tract are normal. Please note that all CT scans at this facility use dose modulation, iterative reconstruction, and/or weight-based dosing when appropriate to reduce radiation dose to as low as reasonably achievable. Dictated by Andrea Salmeron MD @ Nov 25 2019 10:34PM Signed by Dr. Andrea Salmeron @ Nov 25 2019 10:44PM
--- NOTE | 2019-11-25 23:42 | US ---
INDICATION: Right-sided pelvic pain. TECHNIQUE: Ultrasound pelvis transvaginal for better assessment or to better visualize the endometrium. Real-time sonographic images with spectral and color Doppler imaging of the ovaries were obtained. COMPARISON: September 18, 2019. FINDINGS: Uterus: 8 x 5 x 3 cm. Normal echotexture of the myometrium. No distinct fibroids visualized on today`s exam. Endometrium: Transvaginal imaging was performed to better evaluate the endometrium. Endometrial thickness measures 7 mm. No sign of endometrial mass or fluid. Right ovary measures 2 x 1 x 1 cm and left ovary measures 3 x 3 x 3 cm. Again demonstrated is a simple appearing right adnexal cyst measuring 6 x 5 x 4 cm, this has slightly increased in size. Multiple relatively small cysts or follicles are present in the left ovary. Color Doppler blood flow could not be demonstrated in the right ovary. Cul-de-sac: No significant free fluid. IMPRESSION: 1. No convincing evidence for ovarian torsion. Although color Doppler blood flow could not be demonstrated in the right ovary, the ovary is not enlarged and there is no free fluid which are signs typically seen with torsion. 2. Slight interval increase in size of a prominent right paraovarian cyst without evidence of rupture. 3. No other acute or significant findings. Dictated by Andrea Salmeron MD @ Nov 25 2019 11:32PM Signed by Dr. Andrea Salmeron @ Nov 25 2019 11:40PM
--- NOTE | 2019-11-26 00:28 | EDM.PDOC ---
ED HPI GENERAL MEDICAL PROBLEM - General Chief Complaint: Abdominal Pain Stated Complaint: abdominal pain Time Seen by Provider: 11/25/19 21:16 - History of Present Illness INITIAL COMMENTS - FREE TEXT/NARRATIVE: HISTORY AND PHYSICAL: History of present illness: This is a 49-year-old female with no significant past medical history for hypertension, diabetes, liver, lung, kidney problems who presents the ER today complaining of severe right pelvic pain. Patient reports that she was diagnosed with an ovarian cyst several months ago and this feels very similar to the pain that she had when she was diagnosed with an ovarian cyst. Patient denies any recent fevers, shakes, chills, nausea, vomiting, diarrhea. Patient reports her last bowel movement was earlier today. Patient denies any melena or bright red blood per rectum. Patient reports her last p.o. intake was 2 hours prior to arrival and was mashed potatoes and corn. Patient denies any dysuria frequency urgency. Patient denies any cough cold or runny nose. Patient denies any vaginal discharge. Patient denies any dysuria frequency urgency. Patient denies any history of hypertension, diabetes, liver, lung, kidney problems. Patient reports she is status post cholecystectomy. Patient reports she smokes cigarettes but denies any alcohol or drugs. Patient reports she does have a history of von Willebrand factor. Patient's last menstrual period was greater than 1 year ago. Patient has no known drug allergies. Review of systems: As per history of present illness and below otherwise all systems reviewed and negative. Past medical history: As per history of present illness and as reviewed below otherwise noncontributory. Surgical history: As per history of present illness and as reviewed below otherwise noncontributory. Social history: No reported history of drug or alcohol abuse. Family history: As per history of present illness and as reviewed below otherwise noncontributory. Physical exam: Constitutional: Patient is oriented to person, place, and time. Appears well- developed and well-nourished. No distress. HEENT: Moist mucous membranes Head: Normocephalic and atraumatic Eyes: Right eye exhibits no discharge. Left eye exhibits no discharge. No scleral icterus Neck: Normal range of motion. No tracheal deviation present. Cardiovascular: Normal rate and regular rhythm. Pulmonary: Effort normal, no respiratory distress. Abd: Soft, nondistended, no rebound/guarding, no psoas or obturator signs, no tenderness at Mcberney's point, no Cross's sign. Pt does not present with an exam that would be consistent with an acute surgical abdomen at this time, tenderness to palpation right suprapubic region. Musculoskeletal: Normal range of motion Neurologic: Alert and oriented to person, place and time. Skin: [place], warm and dry. Psychiatric: Normal mood and affect. Behavior is normal. Judgment and thought content normal. Nursing note and vital signs have been reviewed Diagnostics: CT scan of the abdomen pelvis reveals no acute pathology. Ultrasound of the pelvis reveals 1. No convincing evidence for ovarian torsion. Although color Doppler blood flow could not be demonstrated in the right ovary, the ovary is not enlarged and there is no free fluid which are signs typically seen with torsion. 2. Slight interval increase in size of prominent right paraovarian cyst without evidence of rupture. Therapeutics: Dilaudid 0.5 mg IV, Toradol 15 mg IV, Dilaudid 1 mg IV, Zofran 4 mg IV, NSS x1 L Assessment and plan: This is a 49-year-old female who presents ER today complaining of right pelvic abdominal discomfort. Patient reports pain that she is experiencing today is similar to the cyst that she was diagnosed with several months ago. Patient's ultrasound today revealed a 6 x 5 x 4 cm right adnexal cyst which appears to be slightly enlarged from her prior ultrasound. I have discussed this case with Dr. pepper secondary to the ultrasound finding of the lack of Doppler flow to the right ovary. also felt that it was highly unlikely that the patient was having ovarian torsion if the ovary was not enlarged and there was no free fluid. He did offer to admit the patient for observation if the patient was having persistent abdominal discomfort, or if she felt comfortable to go home that he would be happy to see her in the morning in his office. I have reevaluated the patient after my discussion with . I have offered admission for her for observation and reevaluation by her DISPATCHER REFINERY service. At this point, that she reports that the pain is almost completely gone and she would prefer to go home and follow-up with in the morning in his office. Patient will be discharged home with a prescription for ibuprofen as well as Ultram to assist her with her discomfort with instructions to call Dr. pepper office to be seen tomorrow by him. 12:30 AM: I once again offered admission for the patient and she once again reiterated that she feels much improved and the pain is almost completely gone does not wish to be admitted to the hospital. Reassessment at the time of disposition demonstrates that the patient is in no acute distress. The patient has remained stable throughout the entire ED visit and is without objective evidence for acute process requiring urgent intervention or hospitalization. The patient is stable for discharge, counseling is provided as documented above, discussed symptomatic treatment and specific conditions for return. I have spoken with the patient/caregiver and discussed todays findings, in addition to providing specific details for the plan of care. Questions are answered and there is agreement with the plan. Definitive disposition and diagnosis as appropriate pending reevaluation and review of above. Treatments THERMAL SPRAY OPERATOR: Reports: Acetaminophen Right Lower Abdominal Pain Score (Numeric/FACES): 8 - Related Data Allergies Allergy/AdvReac Type Severity Reaction Status Date / Time No Known Allergies Allergy Verified 09/18/19 20:01 Home Meds: Home Meds oxyCODONE HCl/Acetaminophen [Percocet 5-325 mg Tablet] 1 each PO Q6H 3 Days #12 tablet 09/18/19 [Rx] Ibuprofen 600 mg PO Q6HR PRN #30 tablet 11/26/19 [Rx] traMADol [Ultram] 50 mg PO Q6H PRN #12 tab 11/26/19 [Rx] Past Medical History - Past Health History Medical/Surgical History: Denies Medical/Surgical History HEENT History: Reports: Other (See Below) Other HEENT History: top and bottom denture, wears glasses Other Cardiovascular History: Von Willebrand disease, never formally diagnosed Gastrointestinal History: Reports: None Other Gastrointestinal History: fissures Genitourinary History: Reports: None DISPATCHER REFINERY History: Reports: , Spontaneous Other DISPATCHER REFINERY History: hx ETOP Musculoskeletal History: Reports: Arthritis Psychiatric History: Reports: Anxiety, Depression Endocrine/Metabolic History: Reports: Obesity/BMI 30+ Hematologic History: Reports: Anemia, Bleeding Disorder Other Hematologic History: hx Von Willebrand's - Infectious Disease History Infectious Disease History: Reports: Chicken Pox - Past Surgical History Head Surgeries/Procedures: Reports: None GI Surgical History: Reports: Cholecystectomy Musculoskeletal Surgical History: Reports: Knee Replacement Other Musculoskeletal Surgeries/Procedures:: double knee replacement Social & Family History - Family History Family Medical History: Noncontributory - Tobacco Use Tobacco Use Status *Q: Current Every Day Tobacco User Years of Tobacco use: 20 Packs/Tins Daily: 0.5 - Caffeine Use Caffeine Use: Reports: Soda, Tea - Recreational Drug Use Recreational Drug Use: No ED ROS GENERAL - Review of Systems Review Of Systems: See Below ED EXAM, GENERAL - Physical Exam Exam: See Below Course - Vital Signs Last Recorded V/S: Last Vital Signs Temp 96.2 F L 11/25/19 21:17 Pulse 105 H 11/25/19 21:17 Resp 16 11/25/19 21:17 BP 154/94 H 11/25/19 21:17 Pulse Ox 96 11/25/19 21:17 - Orders/Labs/Meds Orders: Active Orders 24 hr Category Date Time Status UA W/JOSÉ RFLX IF INDICATED [URIN] Stat Lab 11/25/19 21:24 Ordered Sodium Chloride 0.9% [Saline Flush] Med 11/25/19 21:24 Active 10 ml FLUSH ASDIRECTED PRN Sodium Chloride 0.9% [Saline Flush] Med 11/25/19 21:24 Active 2.5 ml FLUSH ASDIRECTED PRN Saline Lock Insert [OM.PC] Stat Oth 11/25/19 21:24 Ordered Medication Orders Sodium Chloride (Saline Flush) 10 ml FLUSH ASDIRECTED PRN PRN Reason: Keep Vein Open Last Admin: 11/25/19 21:44 Dose: 10 ml Documented by: DANIA Sodium Chloride (Saline Flush) 2.5 ml FLUSH ASDIRECTED PRN PRN Reason: Keep Vein Open Last Admin: 11/25/19 21:43 Dose: 2.5 ml Documented by: ADNIA Labs: Laboratory Tests 11/25/19 11/25/19 11/25/19 Range/Units 21:40 21:40 21:40 WBC 6.09 (4.0-11.0) K/uL RBC 5.25 (4.30-5.90) M/uL Hgb 13.5 (12.0-16.0) g/dL Hct 43.1 (36.0-46.0) % MCV 82.1 (80.0-98.0) fL MCH 25.7 L (27.0-32.0) pg MCHC 31.3 (31.0-37.0) g/dL RDW Std Deviation 45.8 (28.0-62.0) fl RDW Coeff of Ginny 15 (11.0-15.0) % Plt Count 310 (150-400) K/uL MPV 9.90 (7.40-12.00) fL Neut % (Auto) 51.2 (48.0-80.0) % Lymph % (Auto) 38.3 (16.0-40.0) % Howard % (Auto) 8.7 (0.0-15.0) % Eos % (Auto) 1.5 (0.0-7.0) % Baso % (Auto) 0.3 (0.0-1.5) % Neut # (Auto) 3.1 (1.4-5.7) K/uL Lymph # (Auto) 2.3 (0.6-2.4) K/uL Howard # (Auto) 0.5 (0.0-0.8) K/uL Eos # (Auto) 0.1 (0.0-0.7) K/uL Baso # (Auto) 0.0 (0.0-0.1) K/uL Nucleated RBC % 0.0 /100WBC Nucleated RBCs # 0 K/uL Sodium 139 (136-145) mmol/L Potassium 3.9 (3.5-5.1) mmol/L Chloride 103 (98-107) mmol/L Carbon Dioxide 25.5 (21.0-32.0) mmol/L BUN 9 (7.0-18.0) mg/dL Creatinine 0.8 (0.6-1.0) mg/dL Est Cr Clr Drug Dosing 98.16 mL/min Estimated GFR (MDRD) > 60.0 ml/min Glucose 146 H (74-106) mg/dL Calcium 8.8 (8.5-10.1) mg/dL Total Bilirubin 0.2 (0.2-1.0) mg/dL AST 37 (15-37) IU/L ALT 76 H (14-63) IU/L Alkaline Phosphatase 133 H (46-116) U/L Total Protein 7.3 (6.4-8.2) g/dL Albumin 3.6 (3.4-5.0) g/dL Globulin 3.7 (2.6-4.0) g/dL Albumin/Globulin Ratio 1.0 (0.9-1.6) Lipase 62 L (73-393) U/L HCG, Qual NEGATIVE (NEG) Meds: Medications Generic Name Dose Route Start Last Admin Trade Name Freq PRN Reason Stop Dose Admin Sodium Chloride 10 ml 11/25/19 21:24 11/25/19 21:44 Saline Flush FLUSH 10 ml ASDIRECTED PRN Administration Keep Vein Open Sodium Chloride 2.5 ml 11/25/19 21:24 11/25/19 21:43 Saline Flush FLUSH 2.5 ml ASDIRECTED PRN Administration Keep Vein Open Discontinued Medications Generic Name Dose Route Start Last Admin Trade Name Freq PRN Reason Stop Dose Admin Hydromorphone HCl 0.5 mg 11/25/19 21:24 11/25/19 21:40 Dilaudid IVPUSH 11/25/19 21:25 0.5 mg ONETIME ONE Administration Hydromorphone HCl 1 mg 11/25/19 23:06 11/25/19 23:57 Dilaudid IVPUSH 11/25/19 23:07 1 mg ONETIME ONE Administration Sodium Chloride 1,000 mls @ 999 mls/hr 11/25/19 21:24 11/25/19 21:38 Normal Saline IV 11/25/19 22:24 999 mls/hr .Bolus ONE Administration Ketorolac Tromethamine 15 mg 11/25/19 21:24 11/25/19 21:38 Toradol IVPUSH 11/25/19 21:25 15 mg ONETIME ONE Administration Ondansetron HCl 4 mg 11/25/19 21:24 11/25/19 21:39 Zofran IVPUSH 11/25/19 21:25 4 mg ONETIME ONE Administration Departure - Departure Time of Disposition: 00:28 Disposition: Home, Self-Care 01 Condition: Good Clinical Impression: Simple adnexal cyst greater than 1 cm in diameter in postmenopausal patient, Pelvic pain Ovarian cyst Qualifiers: Laterality: right Qualified Code(s): N83.201 - Unspecified ovarian cyst, right side - Discharge Information Instructions: Pelvic Pain, Female, [place], Ovarian Cyst Referrals: Carol Avendaño NEIGHBORHOOD WORKER [Primary Care Provider] - Additional Instructions: You were seen in the ER today secondary to your abdominal discomfort. The ultrasound today does reveal that you have a simple appearing right adnexal cyst that measures 6 x 5 x 4 cm. The cyst appears to be slightly increased in size from your prior ultrasound. You have multiple small cysts present in the left ovary. I have discussed your case with our DISPATCHER REFINERY Dr. swing frame grinder operator, Dr. Pepper. He is offered to observe you overnight in the hospital or see you in the office tomorrow. As we have discussed, you would prefer to see him in the office tomorrow. Please call his office in the morning so that they can schedule you to be seen. Please make sure that you let his women's apparel salesperson know that you were in the ER today and that would like to see you for follow-up sometime tomorrow. Please return to the ER if you have any new or concerning symptoms. You will be prescribed ibuprofen as well as Ultram to assist you with your discomfort. The following information is given to patients seen in the emergency department who are being discharged to home. This information is to outline your options for follow-up care. We provide all patients seen in our emergency department with a follow-up referral. The need for follow-up, as well as the timing and circumstances, are variable depending upon the specifics of your emergency department visit. If you don't have a primary care physician on staff, we will provide you with a referral. We always advise you to contact your personal physician following an emergency department visit to inform them of the circumstance of the visit and for follow-up with them and/or the need for any referrals to a consulting specialist. The emergency department will also refer you to a specialist when appropriate. This referral assures that you have the opportunity for follow-up care with a specialist. All of these measure are taken in an effort to provide you with optimal care, which includes your follow-up. Under all circumstances we always encourage you to contact your private physician who remains a resource for coordinating your care. When calling for follow-up care, please make the office aware that this follow-up is from your recent emergency room visit. If for any reason you are refused follow-up, please contact the [facility] Emergency Department at and asked to speak to the emergency department charge nurse. Sepsis Event Note (ED) - Evaluation Sepsis Screening Result: No Definite Risk - Focused Exam Vital Signs: Vital Signs Temp Pulse Resp BP Pulse Ox 11/25/19 21:17 96.2 F L 105 H 16 154/94 H 96 - My Orders Last 24 Hours: My Active Orders 11/25/19 21:24 UA W/JOSÉ RFLX IF INDICATED [URIN] Stat Sodium Chloride 0.9% [Saline Flush] 10 ml FLUSH ASDIRECTED PRN Sodium Chloride 0.9% [Saline Flush] 2.5 ml FLUSH ASDIRECTED PRN Saline Lock Insert [OM.PC] Stat - Assessment/Plan Last 24 Hours: My Active Orders 11/25/19 21:24 UA W/JOSÉ RFLX IF INDICATED [URIN] Stat Sodium Chloride 0.9% [Saline Flush] 10 ml FLUSH ASDIRECTED PRN Sodium Chloride 0.9% [Saline Flush] 2.5 ml FLUSH ASDIRECTED PRN Saline Lock Insert [OM.PC] Stat
[2019-11-26 01:30] VITALS: BP 123/81; PULSE 91
== END 2019-11-26 00:49 | disposition home or self-care (01) ==
LOC: MW.ED 20:32
DX: N83.201 Unspecified ovarian cyst, right side (principal); N85.8 Other specified noninflammatory disorders of uterus; I10 Essential (primary) hypertension; E11.9 Type 2 diabetes mellitus without complications; E66.9 Obesity, unspecified; Z68.41 Body mass index [BMI] 40.0-44.9, adult; F17.210 Nicotine dependence, cigarettes, uncomplicated
CPT/HCPCS: 36415; 74176; 76857; 80053; 83690; 84703; 85025; 96374; 96375; 96376; 99284; J1170; J1885; J2405; J7030

== ENCOUNTER 2020-05-05 08:26 | Emergency (ER) | payer OTHER ==
[2020-05-05 08:39] VITALS: BP 159/88; PULSE 113
--- NOTE | 2020-05-05 08:45 | EDM.PDOC ---
ED HPI GENERAL MEDICAL PROBLEM - General Chief Complaint: General Stated Complaint: NEEDS BLOOD PRESSURE MED Time Seen by Provider: 05/05/20 08:39 Source of Information: Reports: Patient History Limitations: Reports: No Limitations - History of Present Illness INITIAL COMMENTS - FREE TEXT/NARRATIVE: Patient is a 50-year-old female who was brought in today in police custody for medical clearance. Patient told her present she has high blood pressure but did not bring her medication with her. Patient is unsure the medication she took but we were able to call the pharmacy and looks as if she takes lisinopril 2.5 mg. Patient is at the bedside has no medical complaints no nausea vomiting fever chills chest pain or urinary symptoms. Patient states that the police numbering here have not come the ER for any other complaints. - Related Data Allergies Allergy/AdvReac Type Severity Reaction Status Date / Time No Known Allergies Allergy Verified 05/05/20 08:34 Home Meds: Home Meds lisinopriL [Lisinopril] 2.5 mg PO DAILY 05/05/20 [History] lisinopriL [Lisinopril] 2.5 mg PO DAILY 30 Days #30 tablet 05/05/20 [Rx] Past Medical History - Past Health History Medical/Surgical History: Denies Medical/Surgical History HEENT History: Reports: Other (See Below) Other HEENT History: top and bottom denture, wears glasses Other Cardiovascular History: Von Willebrand disease, never formally diagnosed Gastrointestinal History: Reports: None Other Gastrointestinal History: fissures Genitourinary History: Reports: None SYRUP MIXER History: Reports: , Spontaneous Other SYRUP MIXER History: hx ETOP Musculoskeletal History: Reports: Arthritis Psychiatric History: Reports: Anxiety, Depression Endocrine/Metabolic History: Reports: Obesity/BMI 30+ Hematologic History: Reports: Anemia, Bleeding Disorder Other Hematologic History: hx Von Willebrand's - Infectious Disease History Infectious Disease History: Reports: Chicken Pox - Past Surgical History Head Surgeries/Procedures: Reports: None GI Surgical History: Reports: Cholecystectomy Musculoskeletal Surgical History: Reports: Knee Replacement Other Musculoskeletal Surgeries/Procedures:: double knee replacement Social & Family History - Family History Family Medical History: No Pertinent Family History - Caffeine Use Caffeine Use: Reports: Soda, Tea ED ROS GENERAL - Review of Systems Review Of Systems: See Below Constitutional: Reports: No Symptoms HEENT: Reports: No Symptoms Respiratory: Reports: No Symptoms Cardiovascular: Reports: No Symptoms Endocrine: Reports: No Symptoms GI/Abdominal: Reports: No Symptoms : Reports: No Symptoms Musculoskeletal: Reports: No Symptoms Skin: Reports: No Symptoms Neurological: Reports: No Symptoms Psychiatric: Reports: No Symptoms Hematologic/Lymphatic: Reports: No Symptoms Immunologic: Reports: No Symptoms ED EXAM, GENERAL - Physical Exam Exam: See Below Exam Limited By: No Limitations General Appearance: Alert, WD/WN Eye Exam: Bilateral Eye: EOMI, PERRL Head: Atraumatic Respiratory/Chest: No Respiratory Distress, Lungs Clear Cardiovascular: Normal Peripheral Pulses, Regular Rate, Rhythm GI/Abdominal: Normal Bowel Sounds, Soft, Non-Tender Extremities: Normal Inspection, Normal Range of Motion Neurological: Alert, Oriented, CN II-XII Intact, Normal Cognition Course - Vital Signs Last Recorded V/S: Last Vital Signs Temp 97.6 F 05/05/20 08:34 Pulse 113 H 05/05/20 08:34 Resp 20 05/05/20 08:34 BP 159/88 H 05/05/20 08:34 Pulse Ox 96 05/05/20 08:34 Departure - Departure Time of Disposition: 08:42 Disposition: Home, Self-Care 01 Condition: Good Clinical Impression: Hypertension - Discharge Information *PRESCRIPTION DRUG MONITORING PROGRAM REVIEWED*: Not Applicable *COPY OF PRESCRIPTION DRUG MONITORING REPORT IN PATIENT MARIA C: Not Applicable Instructions: Hypertension, Adult, [id number] Referrals: PCP,None [Primary Care Provider] - Additional Instructions: The following information is given to patients seen in the emergency department who are being discharged to home. This information is to outline your options for follow-up care. We provide all patients seen in our emergency department with a follow-up referral. The need for follow-up, as well as the timing and circumstances, are variable depending upon the specifics of your emergency department visit. If you don't have a primary care physician on staff, we will provide you with a referral. We always advise you to contact your personal physician following an emergency department visit to inform them of the circumstance of the visit and for follow-up with them and/or the need for any referrals to a consulting specialist. The emergency department will also refer you to a specialist when appropriate. This referral assures that you have the opportunity for follow-up care with a specialist. All of these measure are taken in an effort to provide you with optimal care, which includes your follow-up. Under all circumstances we always encourage you to contact your private physician who remains a resource for coordinating your care. When calling for follow-up care, please make the office aware that this follow-up is from your recent emergency room visit. If for any reason you are refused follow-up, please contact the [facility] Emergency Department at and asked to speak to the emergency department charge nurse. Please follow up with your primary care physician. If you do not have a primary care physician, see below: [facility] [address] [place] [id number] [facility] [address] [place] [address] We will send you home with your home medication of lisinopril. If you have any complaints of chest pain confusion vision changes please return to the ED immediately. Otherwise continue medication as prescribed. Sepsis Event Note (ED) - Evaluation Sepsis Screening Result: No Definite Risk - Focused Exam Vital Signs: Vital Signs Temp Pulse Resp BP Pulse Ox 05/05/20 08:34 97.6 F 113 H 20 159/88 H 96 - Assessment/Plan Plan: Male presents today for medical clearance. Patient has no complaints and examination. We able to locate patient's medication list from the pharmacy she takes 2.5 mg of lisinopril. Will prescribe patient medication patient is medically stable to be discharged.
== END 2020-05-05 08:47 | disposition home or self-care (01) ==
LOC: MW.ED 08:26
DX: I10 Essential (primary) hypertension (principal); E66.9 Obesity, unspecified; Z68.35 Body mass index [BMI] 35.0-35.9, adult; Z79.899 Other long term (current) drug therapy
CPT/HCPCS: 99283